=== PATIENT | female | born 1955 | race Caucasian/White ===

== ENCOUNTER 2018-08-22 07:03 | Emergency (ER) | payer BC ==
--- OUTSIDE RECORDS SUMMARY | 2018-08-22 07:12 | XMS REPORT | Continuity of Care Document ---
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 Encntr screen for infections w sexl mode of transmiss Encounter for oth screening for malignant neoplasm of breast Abnormal uterine and vaginal bleeding, unspecified Encntr screen mammogram for malignant neoplasm of breast Encounter for screening for human - immunodeficiency virus Procedures Procedure Date No information Results Test Name Date and Time Measure Units Reference Range Abnormal Flag Status Comments No information Advance Directives Directive Yes / No Effective Date File Name No information Encounters Encounter Practice Location Reason(s) Diagnoses Date Provider Providers Description For Visit Copied on Encounter [facility] [place] [facility]. [facility] [address] [place], [address] [place], [address], [place], [place], [address], [id number], [place]. [place] tel:[phone] [facility] [place] immunodeficiency Erin. Provider: Maria D virus [HIV] [address] counselingEncntr [place], [address] [place] (general) (routine) [place], [address], [place], [place], [place], [place], findingsEncntr [address], [place], [address]. [id number], screen for [place]. [place] infections w sexl tel:[phone] mode of [id number] transmissEncounter for oth screening for malignant neoplasm of breastAbnormal uterine and vaginal bleeding, unspecifiedEncntr screen mammogram for malignant neoplasm of breastEncounter for screening for human immunodeficiency virus Family History Family Member Diagnosis Age At Onset 1st degree relative No hx of venous thromboembolism 1st degree relative No hx of coronary heart disease (female <65, male <55) 1st degree relative No hx of cancer of breast, colon, endometrium or ovary Immunizations Vaccine Date Status Comments No information Payers Payer name Insurance type Covered green party ID Authorization(s) [facility] [id number] Social History Type Description Quantity Date Captured Comments Alcohol Use Details Unknown Caffeine Use Details Unknown Tobacco Use Status Unknown Smoking Status Never smoker Sex Female Vital Signs Date / Height Weight BMI Pulse Blood Temperature Respiratory Body Head BMI Pulse Inhaled Time: Rate Pressure Rate Surface Circumference percentile Ox Ox Area No information Chief Complaint And Reason For Visit No information Reason For Referral Reason For Referral No information Plan Of Treatment Date Type Action Status No information History Of Present Illness Encounter Date Complaint History Of Present Illness No information Functional Status Date Functional Assessment No information Medications Administered Medication Instructions Dosage Effective Dates (start - stop) Status Comments No Drug Therapy Prescribed Instructions Date Instruction Additional Information No information Assessments Type Assessment Date No information Goals Health Concern Goal Type Priority Status Date No information Medical Equipment Description Device [place] Device Identifier Effective Dates (start - stop ) Status No information Mental Status Date Cognitive Assessment No information Health Concerns Observation Date No information Concern Status Date No information
--- OUTSIDE RECORDS SUMMARY | 2018-08-22 07:12 | XMS REPORT | Continuity of Care Document ---
:1955 [address] 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 Other Hydrotreater Operator.Svc. STI HIV-1/HIV-2, SINGLE ASSAY Results Test Name Date and Time Measure Units Reference Range Abnormal Flag Status Comments Panel Description: C trach DNA XXX Ql PCR Final Swab CT - Negative N Final Performed Vaginal 00:00:00 by:
&emsp;&ensp;CDD ([id number])

Panel Description: Amplified GC - Vaginal Final Swab GC - Negative N Final Performed Vaginal 00:00:00 by:
&emsp;&ensp;CDD ([id number])

Panel Description: Syphilis Final Syphilis CHINEDU Non-reactive N Final Infection with T. pallidum 00:00:00 (cause of syphilis) unlikely (earlyprimary syphilis cannot be excluded). Requestadditional testing if syphilis is clinically suspected.CHINEDU: Chemiluminescence immunoassay: No

Performed by:
&emsp;&ensp;CDD ([id number])

Advance Directives Directive Yes / No Effective Date File Name No information Encounters Encounter Practice Location Reason(s) Diagnoses Date Provider Providers Description For Visit Copied on Encounter [facility] Referring COUNSELING, [facility] [place] Person immunodeficiency Erin. 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 [id number], screen for [place]. [place] infections w sexl tel:[phone] mode of [id number] transmissEncounter for oth screening for malignant neoplasm [...] information Payers Payer name Insurance type Covered alliance party ID Authorization(s) [facility] [id number] Social History Type Description Quantity Date Captured Comments Alcohol Use Details Unknown Caffeine Use Details Unknown Tobacco Use Status Current non-smoker Smoking Status Never smoker Non-Smoking Tobacco : No Details Available : No Details Available 2018 Use Details Sex Female Vital Signs Date / Height Weight BMI Pulse Blood Temperature Respiratory Body Head BMI Pulse Inhaled Time: Rate Pressure Rate Surface Circumference percentile Ox Ox Area 60.00 185.00 36.1 158/2019 in lbs 3 mm[Hg] 10:43 kg/m AM eter (2) Chief Complaint And Reason For Visit Most recent encounter only, dated '08/03/2018 10:30'. 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 assessment Encntr screen for infections w sexl mode of transmiss assessment Encounter for oth screening for malignant neoplasm of breast assessment Abnormal uterine and vaginal bleeding, unspecified assessment Encntr screen mammogram for malignant neoplasm of breast 2018 assessment Encounter for screening for human immunodeficiency virus 2018 Goals Health Concern Goal Type Priority Status Date No information Medical Equipment Description Device [place] Device Identifier Effective Dates (start - stop ) Status No information Mental Status Date Cognitive Assessment Normal Orientation Health Concerns Observation Date No information Concern Status Date No information
--- OUTSIDE RECORDS SUMMARY | 2018-08-22 07:12 | XMS REPORT | Continuity of Care Document ---
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 [facility] 9 [address] [place], [address] [place], [address], [place], [place], [address], [id number], [place]. [place] tel:[phone] [facility]erring [facility] [place] immunodeficiency Erin. Provider: [facility] virus [HIV] 9 [address] counselingEncntr [place], [address] [place] (general) (routine) [place], , St, [place], w abnormal [place], [place], [place], findingsEncntr [address], [place], [id number], screen for [place]. [place] infections w sexl tel:[phone] mode of [id number] transmissEncounter for oth screening for malignant neoplasm [...] Insurance type Covered green party ID Authorization(s) [facility] [id number] Social History Type Description Quantity Date Captured [...] Date No information Medical Equipment Description Device [place] Device Identifier Effective Dates (start - stop ) Status No information Mental Status Date Cognitive Assessment No information Health Concerns Observation Date No information Concern Status Date No information
--- OUTSIDE RECORDS SUMMARY | 2018-08-22 07:12 | XMS REPORT | Continuity of Care Document ---
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 Southern 9 [address] [place], [address] [place], St, [place], [place], [address], [id number], [place]. [place] tel:[phone] [facility] Referring [facility] [place] immunodeficiency Erin. Provider: [facility] virus [HIV] 9 [address] counselingEncntr [place], [address], [address] [place] [address] [place] (general) (routine) [place], , St, [place], w abnormal [place], [place], [place], findingsEncntr [address], [place], [address]. [id number], screen for [place]. [place] infections w sexl tel:[phone] mode of [id number] transmissEncounter for oth screening for malignant neoplasm [...] information Payers Payer name Insurance type Covered constitution party ID Authorization(s) [facility] [id number] Social History Type Description Quantity Date Captured [...] Date No information Medical Equipment Description Device [place] Device Identifier Effective Dates (start - stop ) Status No information Mental Status Date Cognitive Assessment No information Health Concerns Observation Date No information Concern Status Date No information
[2018-08-22 07:20] VITALS: BP 155/89
--- NOTE | 2018-08-22 07:32 | UC ---
Throat Pain/Nasal Abisai HPI - HPI Summary HPI Summary: 8 day history of sore throat with initial low grade fever, mild congestion, slight cough, no headache. For the past 2 days has purulent eye discharge without photophobia or vision change. - History of Current Complaint Chief Complaint: UCRespiratory Stated Complaint: SORE THROAT COUGH EYE ISSUE Time Seen by Provider: 08/22/18 07:22 Hx Obtained From: Patient Onset/Duration: Gradual Onset, Lasting Days Severity: Mild Pain Intensity: 3 Cough: Nonproductive Associated Signs & Symptoms: Positive: Dysphagia, Nasal Discharge - Epiglottits Risk Factors Epiglottis Risk Factors: Negative - Allergies/Home Medications Allergies/Adverse Reactions: Allergies Allergy/AdvReac Type Severity Reaction Status Date / Time MS Latex [Latex] Allergy Mild Hives Verified 01/21/14 07:13 Home Medications: Home Medications Acetaminophen TAB* [Tylenol TAB*] 325 mg PO Q4H PRN MDD 6 08/22/18 [History Confirmed 08/22/18] PMH/Surg Hx/FS Hx/Imm Hx Previously Healthy: Yes - overweight, has lost 18 pounds this year with intention - Surgical History Surgical History: None - Family History Known Family History: Positive: Non-Contributory - Social History Occupation: Employed Full-time Lives: Alone Alcohol Use: Rare Substance Use Type: None Smoking Status (MU): Never Smoked Tobacco Have You Smoked in the Last Year: No Review of Systems All Other Systems Reviewed And Are Negative: Yes Constitutional: Positive: Negative Skin: Positive: Negative Eyes: Positive: Drainage ENT: Positive: Sore Throat, Nasal Discharge, Sinus Congestion. Negative: Ear Ache Respiratory: Positive: Negative Cardiovascular: Positive: Negative Gastrointestinal: Positive: Negative Genitourinary: Positive: Negative Motor: Positive: Negative Neurological: Negative: Headache Psychological: Positive: Negative Is Patient Immunocompromised?: No Physical Exam Triage Information Reviewed: Yes Appearance: No Pain Distress, Ill-Appearing - looks mildly unwell Vital Signs: Initial Vital Signs Temp 97.7 F 08/22/18 07:12 Pulse 73 08/22/18 07:12 Resp 18 08/22/18 07:12 BP 155/89 08/22/18 07:12 Pulse Ox 98 08/22/18 07:12 Eyes: Positive: Conjunctiva Inflamed - left eye with purulent drainage, JERRY, no photophobia, mild upper lid swelling. ENT: Positive: Pharyngeal erythema, TMs normal. Negative: Tonsillar swelling, Tonsillar exudate Dental Exam: Normal Neck: Positive: Supple, Nontender, Enlarged Nodes @ - tonsillar nodes very mildly enlarged. Respiratory: Positive: Lungs clear, Normal breath sounds Cardiovascular: Positive: RRR, No Murmur Psychological Exam: Normal Skin Exam: Normal Throat Pain/Nasal Course/Dx - Course Course Of Treatment: antibacterial drops for treatment of conjunctivitis. Symptomatic treatment of URI. - Differential Dx/Diagnosis Differential Diagnosis/HQI/PQRI: Laryngitis, Pharyngitis, Tonsillitis, URI Provider Diagnosis: Conjunctivitis, left eye, Pharyngitis Discharge - Sign-Out/Discharge Documenting (check all that apply): Patient Departure All imaging exams completed and their final reports reviewed: No Studies - Discharge Plan Condition: Good Disposition: HOME Prescriptions: Polymyx/Trimethoprim OPTH* [Polytrim OPHTH*] 2 drop LEFT EYE Q3H #1 btl Patient Education Materials: Conjunctivitis (ED) Referrals: Cole Delcid MD [Primary Care Provider] - Additional Instructions: Continue compressing your eyes with use of drops in the left eye every 2 to 3 hours today, then 4 times daily for a total of 5 daysl. I suggest using the drops in the right eye as well for today to prevent spread to the right eye. Continue symptomatic treatment of the sore throat; there is no appearance of a bacterial throat infections. - Billing Disposition and Condition Condition: GOOD Disposition: Home
== END 2018-08-22 07:47 | disposition home or self-care (01) ==
LOC: UCEAST 07:03
DX: J02.9 Acute pharyngitis, unspecified (principal); H10.9 Unspecified conjunctivitis; Z91.040 Latex allergy status
CPT/HCPCS: 99212; G0463

== ENCOUNTER → 2018-10-22 | Day surgery (SDC) | payer BC ==
[~2018-10-22] MED LIST: Buffered Lidocaine 1% SYRIN* 1 ML/SYRINGE INTRADERM ONE; Chloroprocaine 2%* 20 ML VIAL ONE; Dexamethasone IV* 4 MG/ML 1 ML (4 MG) ONE; Famotidine IV* 10 MG/ML 2 ML (20 mg) IV ONE; Famotidine IV* 10 MG/ML 2 ML (20 mg) ONE; Ibuprofen TAB* 600 MG PO PRN; Ketorolac INJ* 30 MG/ML 1 ML VIAL ONE; Lactated Ringers 1000 ML Bag* 1,000 ML IV SCH; Lidocaine 2% PF * 5 ML VIAL ONE; Midazolam* 1 MG/ML 5 ML VIAL (5 MG) ONE; Naloxone* 0.4 MG/ML 1 ML VIAL IV PRN; Ondansetron INJ* 2 MG/ML VIAL IV PRN; Ondansetron INJ* 2 MG/ML VIAL ONE; Propofol* 10 MG/ML 20 ML BTL ONE; Silver Nitrate/Potassium Nitr* 1 EA STICK ONE; fentaNYL* 50 MCG/ML 2 ML VIAL (100 MCG VIAL) IV PRN; fentaNYL* 50 MCG/ML 2 ML VIAL (100 MCG VIAL) ONE
[2018-10-22 11:05] VITALS: BP 131/81
--- NOTE | 2018-10-22 12:59 | OP ---
CC: [facility] OPERATIVE REPORT: DATE OF OPERATION: 10/22/18 DATE OF : 55 SURGEON: Hayden Melchor MD. ANESTHESIOLOGIST: Dr. Masterson. ANESTHESIA: Spinal. PRE-OP DIAGNOSES: Post menopausal bleeding, thickened endometrium on ultrasound, cervical stenosis. POST-OP DIAGNOSES: Post menopausal bleeding, thickened endometrium on ultrasound, cervical stenosis. OPERATIVE PROCEDURE: Dilation hysteroscopy, MyoSure polypectomy, and curettage. ESTIMATED BLOOD LOSS: Minimal, less than 20 cc. FINDINGS: Small midline uterus. Uterus sounds to 7. There was a large isolated polyp originating f rom the fundus approximately 3 cm in length, approximately 1.5 cm in width. The remainder of the end ometrium appeared atrophic, both tubal ostia were visualized. No adnexal masses were palpated. COMPLICATIONS: None. COUNTS: Sponge count correct x2. CONDITION: The patient was brought to the recovery room, awake, and in stable condition. FLUID DEFICIT: 250 cc on the MyoSure. DESCRIPTION OF PROCEDURE: The patient was brought to the operating room. When spinal anesthesia was found to be adequate, the patient was prepped and draped in the usual sterile fashion in the dorsal lithotomy position. Time-out was performed. Exam under anesthesia was performed. The bivalve specu lum was placed in the vagina. The anterior lip of the cervix was grasped with a single-tooth tenacul um, and the cervix was gently and easily dilated with the graduated Hegar dilators. The MyoSure was introduced. A large focal polyp was seen to be originating from the fundus. The polyp was removed i n its entirety with the MyoSure LITE. The remainder of the endometrium appeared atrophic. Curettage was then performed. The single-tooth tenaculum was removed. Excellent hemostasis was noted. All i nstruments were removed from the vagina. Sponge count was correct x2, and the patient was brought to recovery room awake and in stable condition. [id number]/[facility] #: [id number]
== END | disposition home or self-care (01) ==
LOC: OR 05:26
PROVIDERS: ATTEND Obstetrics & Gynecology
DX: N84.0 Polyp of corpus uteri (principal); N95.0 Postmenopausal bleeding; N88.2 Stricture and stenosis of cervix uteri; I10 Essential (primary) hypertension; G43.909 Migraine, unspecified, not intractable, without status migrainosus; R32 Unspecified urinary incontinence
CPT/HCPCS: 88305; A9270-GY; J1100; J1885; J2250; J2400; J2405; J2704; J3010